=== PATIENT | male | born 1955 | race African-American/Black ===

== ENCOUNTER 2018-02-03 09:09 | Day surgery (SDC) | payer OTHER ==
[2013-06-29 16:27] VITALS: BMI 29.2
[2018-02-03] MEDS ORDERED: LIDOCAINE 1% 20 ML MDV ID STA (09:37)
[2018-02-03] MEDS ORDERED: DIPRIVAN 20 ML VIAL IVP ONE (11:15)
[2018-02-03] MEDS ORDERED: SUBLIMAZE ONE (11:15)
[2018-02-03] MEDS ORDERED: VERSED ONE (11:15)
[2018-02-03 13:49] VITALS: BP 136/87; TEMP 96.6
--- NOTE | 2018-02-04 14:27 | OP ---
INDICATIONS FOR PROCEDURE: 62 year old gentleman presents for colonoscopy and endoscopy exam. He has past history of adenomatous polyps with his last coloscopy 4 years ago. He also had an episode of melena. Question whether this is due to Pepto Bismol or true melena. He is endoscopy as well as colonoscopy. MEDICATIONS: SEE ANESTHESIA NOTES. PROCEDURE: ENDOSCOPY, ANA BIOPSY COLONOSCOPY, SNARE POLYPECTOMY REPORT: The risks, benefits, alternatives and limitations were discussed in detail with the patient. Informed consent was obtained. After adequate sedation was achieved, the video endoscope was introduced in the posterior pharynx and esophagus under direct vision and easily advanced down to the second portion of the duodenum. I then slowly withdrew. The duodenal mucosa appeared unremarkable as did the duodenal bulb. The antrum body is relatively unremarkably. There is minimal irritation in the antrum what looked like erosion that mostly healed over. I obtained two biopsies from the antrum wall and from the body for H Pylori testing. The scope was retroflexed to look at the cardia and fundus which was unremarkable. The scope was anteflexed and withdrawn back through the esophagus which was unremarkable. The patient tolerated the procedure well with stable vital signs and pulse oximetry throughout. The patient's bed was turned. A digital rectal exam revealed good tone, no masses. The colonoscope was introduced into the rectum and advanced under direct visual guidance to the cecum. The cecum was identified by the appendiceal orifice and IC valve. I then slowly withdrew the scope in circumferential manner and examined the mucosa quite carefully. I looked on the proximal and distal sides of fold and flexures as best as possible. I was able to retroflex the scope in the right colon and the left colon to increase visualization. In the cecum there was 6mm slightly raised polyp that I removed by snare technique. The hepatic flexure there was a 5mm slightly raised polyp removed by snare technique. In the very proximal transverse colon there was a 7- 8mm slightly raise polyp that I removed by snare technique. All of these polyps were collected and placed in their own respective jars. In the descending there was a benign appearing 4-5mm polyp removed by snare technique and in the distal sigmoid there was as 5mm slightly sessile polyp that was removed by snare technique. There was several small mouth diverticuli scattered throughout the sigmoid and no other abnormalities were noted including on retroflex view of the anal canal. The prep was good. The withdraw time was 16 minutes and 11 seconds. The patient tolerated the procedure well with stable vital signs and pulse oximetry throughout. IMPRESSION: 1. Minimal gastritis 2. 5 Colon polyps removed 3. Colonic diverticulosis RECOMMENDATIONS: 1. Await for H. Pylori and if it positive we will initiate treatment 2. Await colon polyp pathology and if everything is benign as expected I suggest repeat colonoscopy examination again 3 years or sooner if there are signs or symptoms to indicate otherwise. 3. High fiber diet 4. Office visit as needed CC: Dr. Darion HAMLIN
== END 2018-02-03 12:45 | disposition home or self-care (01) ==
LOC: SURG 09:09
PROVIDERS: ATTEND Internal Medicine Gastroenterology
DX: Z09 Encounter for follow-up examination after completed treatment for conditions other than malignant neoplasm (principal); Z86.010 Personal history of colon polyps; K92.1 Melena; D12.0 Benign neoplasm of cecum; D12.4 Benign neoplasm of descending colon; D12.3 Benign neoplasm of transverse colon; K57.30 Diverticulosis of large intestine without perforation or abscess without bleeding
CPT/HCPCS: 87339

== ENCOUNTER 2018-08-08 13:52 | Outpatient (CLI) ==
[2013-06-29 16:27] VITALS: BMI 29.2
== END 2018-08-08 14:23 | disposition short-term general hospital (02) ==
LOC: AMBL 13:52
PROVIDERS: ATTEND Emergency Medicine
DX: T82.897A Other specified complication of cardiac prosthetic devices, implants and grafts, initial encounter (principal); I49.3 Ventricular premature depolarization; Z95.0 Presence of cardiac pacemaker

== ENCOUNTER 2019-01-30 03:43 | Outpatient (CLI) | payer OTHER ==
[2013-06-29 16:27] VITALS: BMI 29.2
== END 2019-01-30 04:14 | disposition short-term general hospital (02) ==
LOC: AMBL 03:43
PROVIDERS: ATTEND Family Medicine
DX: R00.1 Bradycardia, unspecified (principal); R53.1 Weakness; R53.83 Other fatigue; Z95.810 Presence of automatic (implantable) cardiac defibrillator; Z95.1 Presence of aortocoronary bypass graft